=== PATIENT | female | born 1990 | race Caucasian/White ===

== ENCOUNTER 2017-10-13 16:48 | Emergency (ER) | payer OTHER ==
[~2017-10-13] VITALS: Ht 170.2 cm; Wt 78.5 kg
--- NOTE | 2017-10-13 16:52 | ER Report ---
History and Physical Time Seen By MD: 16:51 Hx. of Stated Complaint: dyspnea (ZOË TONG) HPI/ROS 27-year-old female sent to the emergency room from [facility] has been ill since the end of August stated she started out having sinus symptoms and occasional cough woke up this morning feeling dyspneic states it hurts to breathe was seen at [facility] was given 2 albuterol treatments and this did not make it better was sent to the ER at this point and states that she did have a history of asthma during her 1st has not been on medication since then (ZOË TONG) Allergies: Coded Allergies: No Known Drug Allergies (Unverified , 10/13/17) Home Meds Reported Medications Ethinyl Estradiol/Drospirenone (JJ 28 TABLET) 1 Each Tablet, 1 EACH PO QDAY, TAB 10/13/17 Past Medical/Surgical History 2 para 2 on control, had asthma during her (ZOË TONG) Reviewed Nurses Notes: Yes Old Medical Records Reviewed: Yes (ZOË TONG) Hx Smoking: No Exposure to Second Hand Smoke?: No Hx Substance Use Disorder: No Hx Alcohol Use: No (ZOË TONG) Family History of: HTN (ZOË TONG) Constitutional Vital Sign - Last 24 Hours 10/13/17 10/13/17 10/13/17 10/13/17 16:51 16:54 17:00 17:03 Temp 98.7 Pulse 109 104 Resp 22 B/P (MAP) 137/80 (99) 137/80 127/78 (94) Pulse Ox 93 94 O2 Delivery Room Air 10/13/17 10/13/17 10/13/17 10/13/17 17:16 17:16 17:18 17:30 Pulse 107 103 Resp 18 B/P (MAP) 127/77 (94) Pulse Ox 93 98 O2 Delivery Room Air 10/13/17 10/13/17 10/13/17 10/13/17 17:35 18:00 18:04 18:32 Pulse 101 115 101 Resp 18 18 16 B/P (MAP) 128/79 (95) 10/13/17 10/13/17 10/13/17 19:43 19:44 20:23 Pulse 98 Resp 16 18 B/P (MAP) 120/81 (94) Pulse Ox 98 93 O2 Delivery Room Air Room Air (JINA MORENO MD) Physical Exam 27-year-old female ambulatory to the emergency room is alert anxious HEENT head is normocephalic atraumatic tympanic membranes are non-reddened throat is non- reddened neck is supple supple no JVD no lymphadenopathy heart rate is regular no murmurs rubs and gallops lungs wheezing bilaterally abdomen is soft bowel sounds 4 quadrants (ZOË TONG APRN-Tad) Medical Decision Making Data Points Result Diagram: 10/13/17 1700 10/13/17 1700 Laboratory Hematology Test 10/13/17 17:00 10/13/17 17:10 Red Blood Count 4.89 M/uL (4.17-5.56) Mean Corpuscular Volume 84.2 fL (80.0-96.0) Mean Corpuscular Hemoglobin 29.2 pg (26.0-33.0) Mean Corpuscular Hemoglobin Concent 34.6 g/dL (32.0-36.0) Red Cell Distribution Width 13.4 % (11.5-14.5) Mean Platelet Volume 9.4 fL (7.2-11.1) Neutrophils (%) (Auto) 86.5 % (39.4-72.5) Lymphocytes (%) (Auto) 7.4 % (17.6-49.6) Monocytes (%) (Auto) 4.8 % (4.1-12.4) Eosinophils (%) (Auto) 1.1 % (0.4-6.7) Basophils (%) (Auto) 0.2 % (0.3-1.4) Nucleated RBC Relative Count (auto) 0.0 /100WBC Neutrophils # (Auto) 10.7 K/uL (2.0-7.4) Lymphocytes # (Auto) 0.9 K/uL (1.3-3.6) Monocytes # (Auto) 0.6 K/uL (0.3-1.0) Eosinophils # (Auto) 0.1 K/uL (0.0-0.5) Basophils # (Auto) 0.0 K/uL (0.0-0.1) Nucleated RBC Absolute Count (auto) 0.00 K/uL Prothrombin Time 13.5 seconds (12.0-14.4) Prothromb Time International Ratio 1.03 Activated Partial Thromboplast Time 27 seconds (23-35) D-Dimer Quantitative (PE/DVT) < 0.27 ug/ml (0-0.50) Venous Blood pH 7.39 (7.31-7.41) Sodium Level 137 mmol/L (137-145) Potassium Level 3.3 mmol/L (3.5-5.0) Chloride Level 102 mmol/L (98-107) Carbon Dioxide Level 24 mmol/L (22-31) Blood Urea Nitrogen 8 mg/dl (7-18) Creatinine 0.70 mg/dl (0.52-1.04) Glomerular Filtration Rate Calc > 60.0 Random Glucose 94 mg/dl (75-110) Calcium Level 9.3 mg/dl (8.4-10.2) Total Bilirubin 0.4 mg/dl (0.2-1.3) Aspartate Amino Transf (AST/SGOT) 16 U/L (0-35) Alanine Aminotransferase (ALT/SGPT) 25 U/L (0-56) Alkaline Phosphatase 76 U/L (0-126) Troponin I < 0.012 ng/ml Total Protein 7.8 gm/dl (6.3-8.2) Albumin 4.2 g/dl (3.5-5.0) Human Chorionic Gonadotropin, Qual Negative (NEGATIVE) Monoscreen Negative (NEGATIVE) Group A Streptococcus Screen Negative (NEGATIVE) Influenza Virus Type A (PCR) Negative (NEGATIVE) Influenza Virus Type B (PCR) Negative (NEGATIVE) Chemistry Test 10/13/17 17:00 10/13/17 17:10 White Blood Count 12.4 k/uL (4.5-11.0) Red Blood Count 4.89 M/uL (4.17-5.56) Hemoglobin 14.3 g/dL (12.0-16.0) Hematocrit 41.2 % (34.0-47.0) Mean Corpuscular Volume 84.2 fL (80.0-96.0) Mean Corpuscular Hemoglobin 29.2 pg (26.0-33.0) Mean Corpuscular Hemoglobin Concent 34.6 g/dL (32.0-36.0) Red Cell Distribution Width 13.4 % (11.5-14.5) Platelet Count 176 K/uL (150-450) Mean Platelet Volume 9.4 fL (7.2-11.1) Neutrophils (%) (Auto) 86.5 % (39.4-72.5) Lymphocytes (%) (Auto) 7.4 % (17.6-49.6) Monocytes (%) (Auto) 4.8 % (4.1-12.4) Eosinophils (%) (Auto) 1.1 % (0.4-6.7) Basophils (%) (Auto) 0.2 % (0.3-1.4) Nucleated RBC Relative Count (auto) 0.0 /100WBC Neutrophils # (Auto) 10.7 K/uL (2.0-7.4) Lymphocytes # (Auto) 0.9 K/uL (1.3-3.6) Monocytes # (Auto) 0.6 K/uL (0.3-1.0) Eosinophils # (Auto) 0.1 K/uL (0.0-0.5) Basophils # (Auto) 0.0 K/uL (0.0-0.1) Nucleated RBC Absolute Count (auto) 0.00 K/uL Prothrombin Time 13.5 seconds (12.0-14.4) Prothromb Time International Ratio 1.03 Activated Partial Thromboplast Time 27 seconds (23-35) D-Dimer Quantitative (PE/DVT) < 0.27 ug/ml (0-0.50) Venous Blood pH 7.39 (7.31-7.41) Glomerular Filtration Rate Calc > 60.0 Calcium Level 9.3 mg/dl (8.4-10.2) Total Bilirubin 0.4 mg/dl (0.2-1.3) Aspartate Amino Transf (AST/SGOT) 16 U/L (0-35) Alanine Aminotransferase (ALT/SGPT) 25 U/L (0-56) Alkaline Phosphatase 76 U/L (0-126) Troponin I < 0.012 ng/ml Total Protein 7.8 gm/dl (6.3-8.2) Albumin 4.2 g/dl (3.5-5.0) Human Chorionic Gonadotropin, Qual Negative (NEGATIVE) Monoscreen Negative (NEGATIVE) Group A Streptococcus Screen Negative (NEGATIVE) Influenza Virus Type A (PCR) Negative (NEGATIVE) Influenza Virus Type B (PCR) Negative (NEGATIVE) Coagulation Test 10/13/17 17:00 Prothrombin Time 13.5 seconds Prothromb Time International Ratio 1.03 Activated Partial Thromboplast Time 27 seconds D-Dimer Quantitative (PE/DVT) < 0.27 ug/ml (JINA MORENO MD) EKG/Imaging EKG Interpretation EKG at 1716 normal sinus rhythm ventricular rate 91 QTc is 455 Imaging FACILITY: [facility] PATIENT NAME: Audrey Garcia : 1990 MR: [id number] V: [id number] EXAM DATE: ORDERING PHYSICIAN: ZOË TONG TECHNOLOGIST: [place] [facility] [place] Audrey Garcia : 1990 Visit/Account:[id number] Date of Sevice: 10/13/2017 HISTORY: Respiratory distress DATE: 10/13/2017 5:38 PM TECHNIQUE: CHEST PA AND LAT COMPARISON: none FINDINGS: The cardiomediastinal silhouette is of normal size and contour. No pleural effusion. No pneumothorax. No consolidation. The lungs are adequately expanded. IMPRESSION: Normal chest. Report Dictated By: Aleksandr Hinds MD at 10/13/2017 5:50 PM Report E-Signed By: Aleksandr Hinds MD at 10/13/2017 5:50 PM WSN:[id number] (ZOË TONG) ED Course/Re-evaluation Clinical Indication for ER IV: Hydration ED Course CTA down with positive Wells criteria patient is tachycardic wheezy breath sounds is on control low sats initially CT is negative shows bronchitis she has treatment from [email or web address] for this will initiate prednisone and azithromycin and albuterol puffer for this Re-evaluation Feels better after treatment she was increased air movement after the long nebulizer treatment on did give her 125 Solu-Medrol IV in the emergency room as well will go home has been told if her symptoms get worse she is feeling more dyspneic she needs to return to the emergency room Decision to Disposition Date: Oct 13, 2017 Decision to Disposition Time: 20:23 (ZOË TONG) Depart Departure Latest Vital Signs Vital Signs Date Time Temp Pulse Resp B/P (MAP) Pulse Ox O2 Delivery O2 Flow Rate FiO2 10/13/17 20:23 18 120/81 (94) 93 Room Air 10/13/17 19:44 98 10/13/17 16:54 98.7 (JINA MORENO MD) Impression: Primary Impression: Bronchitis Additional Impression: Dyspnea Condition: Improved Disposition: HOME OR SELF-CARE Referrals: [facility] 2 Days Patient Instructions: Acute Bronchitis (ED) Additional Instructions: Take medications as prescribed by [facility] follow up closely with them return for any increase in problems breathing or concerns NEONATAL INTENSIVE CARE NURSE/PA consult with MD: Verbally (JINA MORENO MD) Problem Qualifiers ZOË TONG APRN-Tad Oct 13, 2017 16:52 JINA MORENO MD Oct 13, 2017 18:34
[2017-10-13] MEDS ORDERED: ETHI1TAB3 PO (16:53)
[2017-10-13] MEDS ORDERED: NS(*) 0.9% 1000 ML BAG 1,000 ML IV ONE (16:54)
[2017-10-13] MEDS ORDERED: methylPREDNIS SUCC 125 MG/2ML IVP ONE (16:55)
[2017-10-13] MEDS: ALBUTEROL/IPRATROPIUM 3 ML NEB NEB SCH ×3 (17:12→17:36)
[2017-10-13 17:21] LABS: PLATELET COUNT, AUTOMATED 176 K/uL (150-450)
--- NOTE | 2017-10-13 17:29 | EKG ---
FACILITY: [facility] [place] PATIENT NAME: NEERAJ CONDE : [id number] MR: [id number] V: [id number] EXAM DATE: ORDERING PHYSICIAN: ZOË TONG TECHNOLOGIST: RAVIN Duque Reason : RESPIRATORY Blood Pressure : / mmHG Vent. Rate : 091 BPM Atrial Rate : 091 BPM P-R Int : 158 ms QRS Dur : 090 ms QT Int : 370 ms P-R-T Axes : 082 070 075 degrees QTc Int : 455 ms Normal sinus rhythm Normal ECG No previous ECGs available Confirmed by GOLDY ASHER ([id number]) on 10/14/2017 2:33:40 AM Referred By: RAN Confirmed By:GOLDY ASEHR
[2017-10-13] MEDS ORDERED: KETOROLAC 30 MG/ML VIAL IVP ONE (17:40)
[2017-10-13 17:41] LABS: INR 1.03
--- NOTE | 2017-10-13 17:54 | RADIOLOGY IMAGING REPORT ---
FACILITY: [facility] PATIENT NAME: Audrey Garcia : 1990 MR: [id number] V: [id number] EXAM DATE: ORDERING PHYSICIAN: ZOË TONG TECHNOLOGIST: Location: [facility] - [place] Patient: Audrey Garcia : 1990 Visit/Account:[id number] Date of Sevice: 10/13/2017 HISTORY: Respiratory distress DATE: 10/13/2017 5:38 PM TECHNIQUE: CHEST PA AND LAT COMPARISON: none FINDINGS: The cardiomediastinal silhouette is of normal size and contour. No pleural effusion. No pne umothorax. No consolidation. The lungs are adequately expanded. IMPRESSION: Normal chest. Report Dictated By: Aleksandr Hinds MD at 10/13/2017 5:50 PM Report E-Signed By: Aleksandr Hinds MD at 10/13/2017 5:50 PM WSN:[id number]
[2017-10-13] MEDS ORDERED: IOPAMIDOL 76% 75 ML INFUS BTL 75 ML ONE (19:17)
[2017-10-13] MEDS ORDERED: NS 0.9% 50 ML VIAL 100 ML ONE (19:17)
[2017-10-13] MEDS ORDERED: ALBUTEROL 2.5 MG/3 ML NEB NEB ONE (19:35)
[2017-10-13] MEDS ORDERED: ACETAMINOPHEN 500 MG TAB PO ONE (19:35)
--- NOTE | 2017-10-13 19:53 | RADIOLOGY IMAGING REPORT ---
[place] [facility] [place]: Audrey Garcia : 1990 MR: [id number] V: [id number] EXAM DATE: ORDERING PHYSICIAN: ZOË TONG TECHNOLOGIST: Location: [facility] Patient: Audrey Garcia : 1990 Visit/Account:[id number] Date of Sevice: 10/13/2017 CT angiogram chest with contrast Indication: Shortness of breath Comparison: X-ray examination the chest from today Technique: Axial CT images are obtained through the chest after administration of 75 mL Isovue 370 IV contrast. Reformatted coronal and sagittal images were reviewed as well as coronal MIP images. One of the following dose optimization techniques was utilized in the performance of this exam: Automated exposure control; adjustment of the mA and/or kV according to the patient's size; or use of an itera tive reconstruction technique. Specific details can be referenced in the facility's radiology CT ex am operational policy. FINDINGS: Heart has a normal size and morphology. No pericardial effusion. Although not optimally timed, thor acic aorta and arch vessels are unremarkable. There is no CT angiographic evidence for pulmonary embolus. Evaluation of the pulmonary parenchyma reveals minimal linear type atelectasis within the medial port ion right middle lobe. Mild bronchial wall thickening is noted. Enlarged lymph node within the infe rior right hilum. Limited view of the upper abdomen is unremarkable. No acute bony finding IMPRESSION: 1. No evidence of pulmonary embolus. 2. Mild central bronchial wall thickening suspicious for bronchitis. No focal pneumonia. Right lennie r adenopathy. Report Dictated By: Winston Hope MD at 10/13/2017 7:42 PM Report E-Signed By: Winston Hope MD at 10/13/2017 7:49 PM WSN:[id number]
[2017-10-13 20:23] VITALS: BP 120/81
== END 2017-10-13 20:25 | disposition home or self-care (01) ==
LOC: ER 17:11
DX: J40 Bronchitis, not specified as acute or chronic (principal); R06.00 Dyspnea, unspecified
CPT/HCPCS: 71046; 71275; 82800; 84484; 84703; 85025; 85379; 85610; 85730; 86308; 87081; 87502; 87880; 93005; 94640; 94644; 96361; 96374; 96375; 99284; J1885; J2930; J7030; J7050; J7613; J7620; Q9967; 82040; 82247; 82310; 82374; 82435; 82565; 82947; 84075; 84132; 84155; 84295; 84450; 84460; 84520